=== PATIENT | male | born 1970 ===

== ENCOUNTER 2025-03-01 06:49 | Day surgery (SDC) | payer BC ==
[2025-02-27 14:43] VITALS: BMI 34.0
[2025-03-01 10:40] VITALS: RESP 18; TEMP 98.3
[2025-03-01 11:33] VITALS: BP 126/67; PULSE 72
== END 2025-03-01 11:36 | disposition home or self-care (01) ==
LOC: JASU-ENDO 06:49
PROVIDERS: ATTEND Internal Medicine Gastroenterology
PROC: 0DBP8ZX Excision of Rectum, Via Natural or Artificial Opening Endoscopic, Diagnostic (ICD-10-PCS; principal; 2025-03-01 11:00)
DX: Z12.11 Encounter for screening for malignant neoplasm of colon (principal); D12.8 Benign neoplasm of rectum; K64.8 Other hemorrhoids; K57.30 Diverticulosis of large intestine without perforation or abscess without bleeding; Z83.719 Family history of colon polyps, unspecified
CPT/HCPCS: 88305-TC